=== PATIENT | male | born 1965 | race Hispanic/Latino ===

== ENCOUNTER 2023-12-24 20:36 | Inpatient (IN) | payer OTHER ==
[~2023-12-24 20:36] MED LIST: Iopamidol-370 76% 500 ML MDV (1 ML CHARGE) ONE
[2023-12-24] MEDS ORDERED: niCARdipine 25 MG/10 ML SDV ONE ×2 (21:04→21:10)
[2023-12-24] MEDS ORDERED: Tenecteplase 50 MG ONE (21:10)
[2023-12-24 21:17] LABS: #Basophils 0.04 10x3/uL (0.0-0.2); %Basophils 0.4 % (0.0-1.0); %Eosinophils 4.8 % (0.0-10.0); %Monocytes 6.6 % (0.0-10.0); %Neutrophils 64.5 % (42.0-75.0); Hematocrit 42.9 % (42.0-52.0); Hemoglobin 13.7 g/dL (14.0-18.0); Mean Corpuscular HGB CONC 31.9 g/dL (32.0-36.0); Mean Corpuscular Hemoglobin 24.5 pg (27.0-31.0); Mean Corpuscular Volume 76.7 fL (78.0-98.0); Mean Platelet Volume 10.4 fL (7.4-10.4); Platelet Count 227 10x3/uL (130-400); RBC Distribution Width 14.6 % (11.5-14.5); Red Blood Cell (RBC) Count 5.59 mill/uL (4.70-6.10)
[2023-12-24 21:30] LABS: INR-International Normal Ratio 1.1; Prothrombin Time 13.7 sec (12.0-14.7)
[2023-12-24 21:31] LABS: PTT 28.9 sec (22.9-36.1)
[2023-12-24 21:48] LABS: ALT (SGPT) 36 U/L (8-55); AST (SGOT) 20 U/L (5-34); Albumin 3.5 g/dL (3.5-5.0); Alkaline Phosphatase 96 U/L (40-110); Anion Gap 13 mmol/L (10-20); BUN (Urea Nitrogen) 12 mg/dL (8.4-25.7); Bilirubin, Total 0.3 mg/dL (0.2-1.2); Calc. Creatinine Clearance 0 mL/min (70-130); Calcium 8.2 mg/dL (7.8-10.44); Carbon Dioxide 21 mmol/L (22-29); Chloride 112 mmol/L (98-107); Estimated GFR 103; Glucose 140 mg/dL (70-105); Potassium 3.7 mmol/L (3.5-5.1); Protein, Total 6.5 g/dL (6.0-8.3); Sodium 142 mmol/L (136-145)
[2023-12-24 21:52] LABS: Troponin I Less than 0.010 ng/mL (< 0.028)
[2023-12-24] MEDS ORDERED: Ondansetron PF 4 MG/2 ML Vial IVP PRN (22:31)
[2023-12-24] MEDS ORDERED: Insulin Lispro 100 UNIT/ML 10 ML VIAL SC PRN (22:32)
[2023-12-24] MEDS ORDERED: Dextrose 50% Abboject 50 ML SYRINGE SLOW IVP PRN (22:32)
[2023-12-24] MEDS ORDERED: Glucagon 1 MG/ML KIT IM PRN (22:32)
[2023-12-24] MEDS ORDERED: Dextrose 5% in Water 1,000 ML IV PRN (22:32)
[2023-12-24] MEDS ORDERED: hydrALAZINE 20 MG/ML VIAL SLOW IVP PRN (22:33)
[2023-12-24] MEDS ORDERED: niCARdipine 25 MG in Sodium Chloride 0.9% 250 ML 250 ML IVPB PRN (22:33)
[2023-12-24] MEDS ORDERED: Communication Order-Pharmacy FS SCH (22:33)
[2023-12-25] MEDS: Acetaminophen 325 MG TAB PO PRN (01:01)
[2023-12-25] MEDS ORDERED: Ipratropium/Albuterol 3 ML NEB EZPAP PRN (02:56)
[2023-12-25] MEDS: FLU (Fluarix Triv) TS24-25(6MOS UP)/PF 45 MCG/0.5 ML Syringe IM ONE (07:43)
[2023-12-25] MEDS: Insulin Lispro 100 UNIT/ML 10 ML VIAL SC PRN (18:40)
[2023-12-25] MEDS: Atorvastatin Calcium 40 MG TAB PO SCH (19:40)
[2023-12-25] MEDS: Labetalol HCl 100 MG/20 ML VIAL SLOW IVP PRN (20:10)
[2023-12-25] MEDS ORDERED: Simethicone Chewable 80 MG TAB PO PRN (23:12)
[2023-12-26 04:29] LABS: #Basophils 0.05 10x3/uL (0.0-0.2); %Basophils 0.5 % (0.0-1.0); %Eosinophils 5.7 % (0.0-10.0); %Lymphocytes 32.3 % (21.0-51.0); %Monocytes 6.5 % (0.0-10.0); %Neutrophils 54.4 % (42.0-75.0); Hematocrit 44.8 % (42.0-52.0); Mean Corpuscular HGB CONC 31.3 g/dL (32.0-36.0); Mean Corpuscular Hemoglobin 24.2 pg (27.0-31.0); Mean Corpuscular Volume 77.4 fL (78.0-98.0); Mean Platelet Volume 10.5 fL (7.4-10.4); Platelet Count 249 10x3/uL (130-400); RBC Distribution Width 14.9 % (11.5-14.5); Red Blood Cell (RBC) Count 5.79 mill/uL (4.70-6.10)
[2023-12-26 04:50] LABS: Hemoglobin A1c 6.7 % (4.0-6.0)
[2023-12-26 04:53] LABS: Anion Gap 12 mmol/L (10-20); BUN (Urea Nitrogen) 12 mg/dL (8.4-25.7); Calc. Creatinine Clearance 188 mL/min (70-130); Calcium 8.9 mg/dL (7.8-10.44); Carbon Dioxide 23 mmol/L (22-29); Cardiac Risk 5.1 (Less than 4.5); Chloride 108 mmol/L (98-107); Cholesterol 142 mg/dl (< 200 Desired); Estimated GFR 99; Glucose 119 mg/dL (70-105); HDL Cholesterol 28 mg/dL (>60 Neg Risk); LDL Cholesterol, Calculated 93 mg/dL; Potassium 3.5 mmol/L (3.5-5.1); Sodium 139 mmol/L (136-145); Triglycerides 106 mg/dL (Less than 150)
[2023-12-26] MEDS: Levothyroxine Sodium 50 MCG TAB PO SCH (07:09)
[2023-12-26 07:50] VITALS: BMI 47.8
[2023-12-26] MEDS: Lisinopril 20 MG TAB PO SCH (09:29)
[2023-12-26] MEDS: Aspirin 81 mg Enteric Coated Tablet PO SCH (09:29)
[2023-12-26] MEDS: hydrALAZINE 25 MG TAB PO SCH (09:29)
[2023-12-26] MEDS: Oxybutynin 5 MG TAB PO SCH (09:29)
[2023-12-26] MEDS: Furosemide 40 MG TAB PO SCH (09:29)
[2023-12-26] MEDS: Carvedilol 25 MG TAB PO SCH (09:29)
[2023-12-26] MEDS: Amlodipine 10 MG TAB PO SCH (09:30)
[2023-12-26] MEDS: Insulin NPH Human Isophane 100 UNITS/ML (10 ML VIAL) SC SCH (10:43)
[2023-12-26] MEDS: Ipratropium Bromide 2.5 ml Neb NEB SCH (11:10)
[2023-12-26] MEDS: metFORMIN 500 MG TAB PO SCH (17:19)
[2023-12-26] MEDS: Pantoprazole DR 40 MG TAB PO SCH (21:32)
[2023-12-26] MEDS: Enoxaparin 40 MG (0.4 mL) SYRINGE SC SCH (21:33)
[2023-12-26] MEDS: Sertraline 100 MG TAB PO SCH (21:36)
[2023-12-26] MEDS: Terazosin HCl 5 MG CAP PO SCH (21:36)
[2023-12-27 04:56] LABS: #Basophils 0.05 10x3/uL (0.0-0.2); %Basophils 0.5 % (0.0-1.0); %Lymphocytes 30.3 % (21.0-51.0); %Monocytes 5.4 % (0.0-10.0); %Neutrophils 58.3 % (42.0-75.0); Hematocrit 41.2 % (42.0-52.0); Hemoglobin 13.1 g/dL (14.0-18.0); Mean Corpuscular HGB CONC 31.8 g/dL (32.0-36.0); Mean Corpuscular Hemoglobin 24.8 pg (27.0-31.0); Mean Corpuscular Volume 77.9 fL (78.0-98.0); Mean Platelet Volume 10.7 fL (7.4-10.4); Platelet Count 231 10x3/uL (130-400); RBC Distribution Width 14.8 % (11.5-14.5); Red Blood Cell (RBC) Count 5.29 mill/uL (4.70-6.10)
[2023-12-27 05:03] LABS: Anion Gap 13 mmol/L (10-20); BUN (Urea Nitrogen) 17 mg/dL (8.4-25.7); Calc. Creatinine Clearance 144 mL/min (70-130); Calcium 8.7 mg/dL (7.8-10.44); Carbon Dioxide 24 mmol/L (22-29); Chloride 107 mmol/L (98-107); Estimated GFR 73; Glucose 100 mg/dL (70-105); Iron 55 ug/dL (65-175); Potassium 3.5 mmol/L (3.5-5.1); Sodium 140 mmol/L (136-145)
[2023-12-27] MEDS ORDERED: Dextromethorphan Polistirex 60 MG/10 ML ER.12 HR UDCUP PO PRN (13:23)
[2023-12-27] MEDS: Furosemide 40 MG (4 mL) VIAL SLOW IVP SCH (13:54)
[2023-12-28] MEDS: Dextromethorphan Polistirex 60 MG/10 ML ER.12 HR UDCUP PO PRN (06:30)
[2023-12-28] MEDS ORDERED: Ipratropium Bromide 2.5 ml Neb NEB PRN (08:01)
[2023-12-28] MEDS: Ferrous Fumarate 324 MG TAB PO SCH (08:28)
[2023-12-28] MEDS ORDERED: Metamucil PACK PO SCH (09:00)
[2023-12-28] MEDS: Furosemide 40 MG (4 mL) VIAL SLOW IVP SCH (14:35)
[2023-12-29] MEDS: Furosemide 40 MG TAB PO SCH (07:57)
[2023-12-29] MEDS: Carvedilol 6.25 MG TAB PO SCH (20:57)
[2023-12-30] MEDS: Levothyroxine Sodium 75 MCG TAB PO SCH (05:25)
[2023-12-30] MEDS: Furosemide 40 MG TAB PO SCH (08:40)
[2023-12-30] MEDS: Amlodipine 5 MG TAB PO SCH (08:41)
[2024-01-01 22:15] VITALS: BMI 48.6
[2024-01-02 03:55] LABS: #Basophils 0.04 10x3/uL (0.0-0.2); %Basophils 0.5 % (0.0-1.0); %Eosinophils 5.4 % (0.0-10.0); %Lymphocytes 29.5 % (21.0-51.0); %Monocytes 7.3 % (0.0-10.0); Hematocrit 39.9 % (42.0-52.0); Hemoglobin 12.4 g/dL (14.0-18.0); Mean Corpuscular HGB CONC 31.1 g/dL (32.0-36.0); Mean Corpuscular Hemoglobin 24.6 pg (27.0-31.0); Mean Corpuscular Volume 79.2 fL (78.0-98.0); Mean Platelet Volume 11.1 fL (7.4-10.4); Platelet Count 207 10x3/uL (130-400); RBC Distribution Width 14.9 % (11.5-14.5); Red Blood Cell (RBC) Count 5.04 mill/uL (4.70-6.10)
[2024-01-02 04:14] LABS: Anion Gap 14 mmol/L (10-20); BUN (Urea Nitrogen) 18 mg/dL (8.4-25.7); Calc. Creatinine Clearance 145 mL/min (70-130); Calcium 8.5 mg/dL (7.8-10.44); Carbon Dioxide 25 mmol/L (22-29); Chloride 105 mmol/L (98-107); Estimated GFR 73; Glucose 114 mg/dL (70-105); Potassium 3.7 mmol/L (3.5-5.1); Sodium 140 mmol/L (136-145)
[2024-01-02] MEDS: Losartan 25 MG TAB PO SCH (08:55)
[2024-01-02] MEDS: Potassium Chloride 20 MEQ TAB PO SCH (10:58)
[2024-01-03 17:55] VITALS: BP 123/81; TEMP 97.7
== END 2024-01-03 20:13 | DRG 62 ==
LOC: ERS 20:36 → EEVIPCON 22:15 → CCU 22:15 → 2SE 12-25 23:35
PROVIDERS: ADMIT Internal Medicine; ATTEND Internal Medicine
DX: I63.9 Cerebral infarction, unspecified (principal); D62 Acute posthemorrhagic anemia; I16.1 Hypertensive emergency; K92.2 Gastrointestinal hemorrhage, unspecified; N17.9 Acute kidney failure, unspecified; E87.20 Acidosis, unspecified; I47.20 Ventricular tachycardia, unspecified; G81.94 Hemiplegia, unspecified affecting left nondominant side; G51.0 Bell's palsy; I10 Essential (primary) hypertension; E78.5 Hyperlipidemia, unspecified; I12.9 Hypertensive chronic kidney disease with stage 1 through stage 4 chronic kidney disease, or unspecified chronic kidney disease; N18.32 Chronic kidney disease, stage 3b; R11.0 Nausea; E87.6 Hypokalemia; J44.9 Chronic obstructive pulmonary disease, unspecified; G47.33 Obstructive sleep apnea (adult) (pediatric); E03.9 Hypothyroidism, unspecified; I25.10 Atherosclerotic heart disease of native coronary artery without angina pectoris; Z98.84 Bariatric surgery status; Z91.018 Allergy to other foods; Z91.048 Other nonmedicinal substance allergy status; Z99.3 Dependence on wheelchair; Z86.73 Personal history of transient ischemic attack (TIA), and cerebral infarction without residual deficits; R29.711 NIHSS score 11
CPT/HCPCS: 0042T; 36415; 36416; 70450; 70496; 70498; 71045; 72170; 74019; 80048; 80053; 80061; 82728; 83036; 83540; 83735; 84439; 84443; 84484; 85025; 85046; 85610; 85730; 87633; 93005; 93306; 94640; 94760; 96365; 96366; 96375; J1650; J1815; J1940; J3101; J7644; Q9967